=== PATIENT | male | born 1965 | race Caucasian/White ===

== ENCOUNTER 2019-10-23 11:16 | Inpatient (IN) | payer OTHER ==
[2019-10-23] MEDS ORDERED: METOCLOPRAMIDE HCL INJECTION 10 MG/2 ML VIAL IVPUSH ONE (11:41)
[2019-10-23] MEDS ORDERED: morphine CARPU-JECT 4 MG/1 ML DISP.SYRIN IVPUSH ONE (11:41)
[2019-10-23] MEDS ORDERED: LACTATED RINGERS SOLUTION 1000 ML INFUS.BAG IV ONE ×2 (11:42→12:52)
[2019-10-23] MEDS ORDERED: METOCLOPRAMIDE HCL INJECTION 10 MG/2 ML VIAL ONE (12:17)
[2019-10-23] MEDS ORDERED: morphine SULFATE 4 MG/ML VIAL ONE (12:18)
[2019-10-23 12:32] LABS: BASO % 0.6 % (0-2.0); EOS % 0.1 % (0-4.5); HEMATOCRIT 33.9 % (35.4-49); HEMOGLOBIN 11.2 GM/dL (11.7-16.9); MCH 26.5 pg (25.7-33.7); MCHC 33.1 g/dl (32.0-35.9); MEAN CELL VOLUME 80.2 fl (80-96); MEAN PLT VOLUME 8.6 fl (7.5-11.1); MONO % 7.7 % (3.8-10.2); NEUT % 80.6 % (42.8-82.8); PLATELET COUNT 181 K/MM3 (134-434); RBC 4.23 M/mm3 (4.00-5.60); RDW 13.5 % (11.9-15.9); WHITE BLOOD COUNT 6.1 K/mm3 (4.0-10.0)
[2019-10-23 12:39] LABS: VENOUS PC02 41.4 mmHg (38-52); VENOUS PO2 < 49 mmHg (28-48)
[2019-10-23 12:45] LABS: INR 1.12 (0.83-1.09); PROTHROMBIN TIME (PATIENT) 13.2 SEC (9.7-13.0)
[2019-10-23 12:47] LABS: ACTIVATED PTT 38.1 SECONDS (25.2-36.5)
[2019-10-23] MEDS ORDERED: ACETAMINOPHEN 1000 MG/100 ML VIAL (NON FORMULARY) IVPB ONE (12:52)
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
[2019-10-23 12:58] LABS: ALBUMIN 3.4 g/dl (3.4-5.0); BILIRUBIN,TOTAL 0.4 mg/dL (0.2-1); BLOOD UREA NITROGEN 14.6 mg/dL (7-18); CREATININE 1.2 mg/dL (0.55-1.3); POTASSIUM 3.7 mmol/L (3.5-5.1); TOT PROT 7.7 g/dl (6.4-8.2)
[2019-10-23] MEDS ORDERED: ACETAMINOPHEN INJECTION 100 ML IVPB ONE (13:00)
[2019-10-23] MEDS ORDERED: PIPERACILLIN/TAZOB 4.5 GM 4.5 GM in DEXTROSE 5%-WATER 100 ML IVPB ONE (13:07)
[2019-10-23] MEDS ORDERED: VANCOMYCIN 1,250 MG in DEXTROSE 5%-WATER - 250 ML IVPB ONE (13:07)
--- NOTE | 2019-10-23 13:14 | EKG ---
Test Reason : Blood Pressure : / mmHG Vent. Rate : 088 BPM Atrial Rate : 088 BPM P-R Int : 120 ms QRS Dur : 082 ms QT Int : 374 ms P-R-T Axes : 065 053 034 degrees QTc Int : 452 ms POOR DATA QUALITY, INTERPRETATION MAY BE ADVERSELY AFFECTED SINUS RHYTHM WITH PREMATURE ATRIAL COMPLEXES WHEN COMPARED WITH ECG OF 24-NOV-2014 16:53, PREMATURE ATRIAL COMPLEXES ARE NOW PRESENT NONSPECIFIC T WAVE ABNORMALITY HAS REPLACED INVERTED T WAVES IN INFERIOR LEADS Confirmed by ANDREW UNDERWOOD MD ([id number]) on 10/23/2019 1:14:21 PM Referred By: Confirmed By:ANDREW UNDERWOOD MD
[2019-10-23] MEDS ORDERED: PIPERACILLIN/TAZOB 4.5 GM 4.5 GM/100 ML BAG IVPB ONE (14:46)
[2019-10-23] MEDS ORDERED: OSELTAMIVIR PHOSPHATE 75 MG CAPSULE PO ONE (15:12)
[2019-10-23] MEDS ORDERED: KETOROLAC TROMETHAMINE 15 MG/ML VIAL IVPUSH ONE (15:37)
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
[2019-10-23] MEDS ORDERED: OSELTAMIVIR PHOSPHATE 75 MG CAPSULE ONE (16:20)
[2019-10-23] MEDS ORDERED: KETOROLAC TROMETHAMINE 15 MG/ML VIAL ONE (16:20)
[2019-10-23 16:29] LABS: METHADONE, UR NEGATIVE ng/ml (CUTOFF=300); PHENCYCLIDINE,URINE NEGATIVE ng/ml (CUTOFF=25); URINE AMPHETAMINES NEGATIVE ng/ml (CUTOFF=500); URINE BARBITURATES NEGATIVE ng/ml (CUTOFF=200); URINE BENZODIAZEPINES NEGATIVE ng/ml (CUTOFF=200)
[2019-10-23 16:38] LABS: COCAINE, UR POSITIVE ng/ml (CUTOFF=300); OPIATES, URI POSITIVE ng/ml (CUTOFF=300)
[2019-10-23] MEDS ORDERED: AZITHROMYCIN IVPB 500 MG/250 ML BAG IVPB ONE (16:56)
[2019-10-23] MEDS: AZITHROMYCIN IVPB 500 MG/250 ML BAG IVPB SCH (17:04)
[2019-10-23 17:22] LABS: URINE COLOR YELLOW
[2019-10-23 17:23] LABS: URINE APPEARANCE CLEAR; URINE BILIRUBIN NEGATIVE (NEGATIVE); URINE GLUCOSE (UA) NEGATIVE (NEGATIVE); URINE KETONE NEGATIVE (NEGATIVE); URINE PROTEIN 1+ (NEGATIVE); URINE UROBILINOGEN 0.2 mg/dL (0.2-1.0)
[2019-10-23 17:24] LABS: URINE LEUK ESTERASE NEGATIVE (NEGATIVE); URINE NITRITE NEGATIVE (NEGATIVE)
--- NOTE | 2019-10-23 17:25 | PN ---
Teaching Attending Note Name of Resident: Cedric Ley ATTENDING PHYSICIAN STATEMENT I saw and evaluated the patient. I reviewed the resident's note and discussed the case with the resident. I agree with the resident's findings and plan as documented. SUBJECTIVE: Pt. is a 54 y.o. M w/ PMHx. of HIV(last CD4: 63, high viral load) and Poly- substance abuse presents for chest pain and abdominal pain of 1 week duration, associated with fever, chills, cough, blood-tinged sputum, 10-lb weight loss over the last month,with decreased PO intake, night sweats and nasal congestion over the last week.also c/o having watery diarrhea and difficulty urinating over the last few months. OBJECTIVE: Vital Signs Temperature 100.9 F H 10/23/19 11:23 Pulse Rate 92 H 10/23/19 11:32 Respiratory Rate 19 10/23/19 11:23 Blood Pressure 90/69 10/23/19 11:23 O2 Sat by Pulse Oximetry (%) 100 10/23/19 11:32 GENERAL: The patient is awake, alert, and fully oriented, looking very ill, HEAD: Normal with no signs of trauma. EYES: PERRL, extraocular movements intact, sclera anicteric, conjunctiva clear. ENT: Ears normal, oropharynx clear without exudates, moist mucous membranes. NECK: Trachea midline, full range of motion, supple. LUNGS: decreased BS BL, + wheezes, no crackles, no accessory muscle use. HEART: Regular rate and rhythm, S1, S2 without murmur, rub or gallop. ABDOMEN: Soft, nontender, nondistended, normoactive bowel sounds, no guarding, no rebound, no hepatosplenomegaly, no masses. EXTREMITIES: 2+ pulses, warm, well-perfused, no edema. NEUROLOGICAL: Cranial nerves II through XII grossly intact. Normal speech, gait not observed. PSYCH: Normal mood, normal affect. SKIN: Warm, dry, normal turgor, no rashes or lesions noted CBCD WBC 6.1 K/mm3 (4.0-10.0) 10/23/19 12:00 RBC 4.23 M/mm3 (4.00-5.60) 10/23/19 12:00 Hgb 11.2 GM/dL (11.7-16.9) L 10/23/19 12:00 Hct 33.9 % (35.4-49) L 10/23/19 12:00 MCV 80.2 fl (80-96) 10/23/19 12:00 MCHC 33.1 g/dl (32.0-35.9) 10/23/19 12:00 RDW 13.5 % (11.9-15.9) 10/23/19 12:00 Plt Count 181 K/MM3 (134-434) 10/23/19 12:00 MPV 8.6 fl (7.5-11.1) 10/23/19 12:00 CMP Sodium 133 mmol/L (136-145) L 10/23/19 12:00 Potassium 3.7 mmol/L (3.5-5.1) 10/23/19 12:00 Chloride 102 mmol/L (98-107) 10/23/19 12:00 Carbon Dioxide 25 mmol/L (21-32) 10/23/19 12:00 Anion Gap 6 MMOL/L (8-16) L 10/23/19 12:00 BUN 14.6 mg/dL (7-18) 10/23/19 12:00 Creatinine 1.2 mg/dL (0.55-1.3) 10/23/19 12:00 Random Glucose 91 mg/dL (74-106) 10/23/19 12:00 Calcium 8.0 mg/dL (8.5-10.1) L 10/23/19 12:00 Total Bilirubin 0.4 mg/dL (0.2-1) 10/23/19 12:00 AST 23 U/L (15-37) 10/23/19 12:00 ALT 27 U/L (13-61) 10/23/19 12:00 Alkaline Phosphatase 65 U/L (45-117) 10/23/19 12:00 Total Protein 7.7 g/dl (6.4-8.2) 10/23/19 12:00 Albumin 3.4 g/dl (3.4-5.0) 10/23/19 12:00 CARDIAC ENZYMES Creatine Kinase 212 U/L (26-308) 10/23/19 12:00 Troponin I < 0.02 ng/ml (0.00-0.05) 10/23/19 12:00 Current Medications Generic Name Dose Route Start Last Admin Trade Name Ren PRN Reason Stop Dose Admin Enoxaparin Sodium 40 mg 10/24/19 10:00 Lovenox - SQ DAILY [facility] Azithromycin 500 mg in 250 mls @ 250 mls/hr 10/23/19 16:00 10/23/19 17:04 Zithromax 500mg Ivpb (Pre-Docked) IVPB 250 mls/hr DAILY [facility] Administration Ceftriaxone Sodium 1 gm/ 50 mls @ 200 mls/hr 10/23/19 17:30 Dextrose IVPB DAILY [facility] Protocol Oseltamivir Phosphate 75 mg 10/24/19 10:00 Tamiflu - PO 10/29/19 09:59 DAILY [facility] Home Medications Medication Instructions Recorded Abacavir/Dolutegravir/Lamivudi 1 each PO DAILY #30 tablet 09/28/19 [Triumeq 600-50-300 mg Tablet] Albuterol Sulfate Inhaler - 2 inh PO Q4H #1 inh 09/28/19 [Ventolin HFA Inhaler -] Bacitracin - [Bacitracin Topical 1 applic TP BID #1 applic 09/28/19 Ointment -] Darunavir/Cobicistat [Prezcobix 1 each PO DAILY #30 tablet 09/28/19 800 mg-150 mg Tablet] Multivitamin,Therapeutic [Thera] 1 each PO DAILY #30 tablet 09/28/19 Nicotine [Nicotine Patch 21 mg/24 1 patch TD DAILY #1 box 09/28/19 hr] Sulfamethoxazole/Trimethoprim 1 tab PO DAILY #30 tablet 09/28/19 [Bactrim DS -] Triamcinolone 0.1% Cream 1 applic TP BID #1 tube 09/28/19 [Aristocort 0.1% Cream -] Laboratory Tests 10/23/19 10/23/19 12:00 16:03 Opiates Screen Positive A* Cocaine Screen Positive A* U Marijuana (THC) Screen Positive A* Influenza A (Rapid) Negative Influenza B (Rapid) Negative chest CTA- no infiltrate, no PE ct abd/pelvis- no acute pathology ASSESSMENT AND PLAN: Patient is a 54yo male with Pmhx of hIV/Aids, Polysubstance abuse, presented with generalized weakness,fever, cough, non-bloody diarrhea, abdominal pain, shortness of breath , midepigastric pain x 1 week # Generalized weakness with flu like symptoms r/o Influenza/acute bronchitis; legionella s/p IV zosyn and vancomycin in ED viral PCR, stanton cx, continue Tamiflu, ceftriaxone/zithromax , droplet isolation, # aCUTE uti: CEFTRIAXONE DAILY ; ua, urine cx # Acute hyponatremia with non-bloody diarrhea: CANNOT R/O LEGIONELLA , stanton cx, stool WBC, stool cx # nON BLOODY DIARRHEA: stool wbc, culture, cdiff , ova and parasites #atypical for MAC : Blood cultures for afb #HIV/Aids continue ART,send cryptococcal antigen PER id. #Polysubstance abuse: detox MD consult dvt PX: sCDS
--- NOTE | 2019-10-23 17:39 | PN ---
Progress Note (short form) - Note Progress Note: ID consult dictated d/w admitting team 54 yo man with history of substance, denies IVDU, HIV + aids by tcells- intermittent adherence with meds seen in clinic today with fever and cough, with chest pain and midepigastric pain for one week +cigarette use nonbloody diarrhea for one week dysuria lives with mother chest CTA- no infiltrate, no PE ct abd/pelvis- no acute pathology r/o influenza r/o bronchitis r/o UTI continue ART received vanco/zosyn in ED droplet isolation tamiflu resp virus pcr ceftriaxone for uti zithromax for bronchitis atypical for MAC but can send blood cultures for afb send cryptococcal antigen (no headache) stool wbc, culture, cdiff , ova and parasites
[2019-10-23 18:13] LABS: EPI CELLS 1.8 /HPF (0-5/HPF); HYALINE CASTS 0.35 /lpf (0-8); URINE BACTERIA NONE SEEN /hpf (NEGATIVE); URINE RBC 0.4 /hpf (0-4); URINE WBC 1.7 /hpf (0-5)
--- NOTE | 2019-10-23 19:02 | CONS ---
DATE OF CONSULTATION: DATE OF DICTATION: 10/23/2019 INFECTIOUS DISEASE CONSULTATION REQUESTING PHYSICIAN: Hospitalist Service. CONSULTING PHYSICIAN: Elaina Norton MD. HISTORY OF PRESENT ILLNESS: This is a 54-year-old man with HIV disease, comes for intermittent care at the [facility]. He has questionable adherence to medications. He is a substance user but denies any IV drug use. Currently reports he is back in care since September 28 when he came to clinic, and he has been taking his medicines. He lives at home with his mother. He presents to the ER complaining of 1 week of cough. He has been running fevers at home. He has been having chest pain. He has been having diarrhea, nonbloody. He has been having dysuria. He says he thought all his symptoms would go away. He did not take any antibiotics, but he came to clinic today for evaluation and was advised ER evaluation. He complains of continued lower chest discomfort and abdominal pain. In the ER, given his complaints of pain, he had a chest CTA and abdominal CAT scan of the abdomen and pelvis that revealed no PE, no infiltrates, and a normal abdomen and pelvis. He continues to have discomfort. He has no history of any travel, he lives with his mother. He did get an influenza vaccine on the when he came to clinic. He is allergic to VIREAD, which gives him a rash. PAST MEDICAL HISTORY: Notable for HIV disease, and he has not had any surgery. He is a current, every day smoker. He uses cocaine. In the past he has used cocaine and alcohol. MEDICATION: His medications include , Ventolin, Prezcobix, , nicotine, Bactrim, triamcinolone. REVIEW OF SYSTEMS: As per HPI. He denies visual changes. He denies headaches. PHYSICAL EXAMINATION: General: He is awake and alert, his T-max is 100.9, current temperature is 99.5, pulse of 88, blood pressure is 110/68. He is saturating 98% on room air. HEENT: Normocephalic. Eyes are anicteric. His face is joseph. Neck: Supple. He has no thrush. He has no meningeal signs. Lungs: Diminished breath sounds at the bases. Heart: Regular rate and rhythm. Abdomen: There is no distention. He has midepigastric and suprapubic pain. He has pain in the lower part of his sternum as well to touch. Extremities: Without edema. LABORATORY: White count is 6.1, hemoglobin 11.2, platelets are 181, INR is 1.1. His BUN and creatinine are 14 and 1.2. Liver function tests are normal. UA is pending. His last T-cells were 63 on September 28 with a viral load of 237. Influenza screen in the ER was negative. Imaging is as stated. IMPRESSION: In summary, this is a 54-year-old man with acquired immunodeficiency syndrome who denies drug use admitted with a fever cough syndrome, rule out influenza, rule out bronchitis. He is complaining of dysuria as well and has suprapubic pain, rule out urinary tract infection. Blood cultures have been sent. He received vancomycin and Zosyn in the emergency room. Would isolate him for flu, treat him with Tamiflu, obtain a respiratory virus polymerase chain reaction. Ceftriaxone for possible urinary tract infection. Zithromax for bronchitis. Can send blood cultures for acid-fast bacillus. Send a cryptococcal antigen. Stool studies including white cells, cultures, Clostridium difficile, ova and parasites. Regarding his acquired immunodeficiency syndrome, would continue his antiretroviral care. Case was discussed at length with the admitting team. ELAINA NORTON M.D. [id number]
[2019-10-23] MEDS ORDERED: CEFTRIAXONE 1 GM/50 ML BAG ONE (19:33)
[2019-10-23] MEDS: CEFTRIAXONE 1 GM in DEXTROSE 5%-WATER - 50 ML IVPB SCH (19:43)
[2019-10-23] MEDS: SODIUM CHLORIDE 1,000 ML IV SCH (19:43)
[2019-10-23] MEDS: NICOTINE 21 MG/24 HOURS TOPICAL PATCH TD SCH (20:37)
[2019-10-23] MEDS ORDERED: PIPERACILLIN/TAZOB 4.5 GM 4.5 GM in DEXTROSE 5%-WATER 100 ML IVPB SCH (21:00)
[2019-10-24] MEDS ORDERED: ACETAMINOPHEN 325 MG TABLET (FP) ONE (06:22)
[2019-10-24] MEDS: ACETAMINOPHEN 325 MG TABLET (FP) PO PRN ×2 (06:27→20:56)
[2019-10-24 08:16] LABS: BASO % 0.2 % (0-2.0); EOS % 0.5 % (0-4.5); HEMATOCRIT 29.2 % (35.4-49); HEMOGLOBIN 9.8 GM/dL (11.7-16.9); LYMPH % 9.5 % (8-40); MCH 26.6 pg (25.7-33.7); MCHC 33.6 g/dl (32.0-35.9); MEAN PLT VOLUME 8.7 fl (7.5-11.1); MONO % 7.1 % (3.8-10.2); NEUT % 82.7 % (42.8-82.8); PLATELET COUNT 149 K/MM3 (134-434); RBC 3.69 M/mm3 (4.00-5.60); RDW 13.8 % (11.9-15.9); WHITE BLOOD COUNT 5.8 K/mm3 (4.0-10.0)
[2019-10-24 08:48] LABS: ALBUMIN 2.7 g/dl (3.4-5.0); BILIRUBIN,TOTAL 0.3 mg/dL (0.2-1); BLOOD UREA NITROGEN 12.2 mg/dL (7-18); CALCIUM 7.6 mg/dL (8.5-10.1); CREATININE 0.9 mg/dL (0.55-1.3); MAGNESIUM 1.9 mg/dL (1.8-2.4); PHOSPHOROUS 2.8 mg/dL (2.5-4.9); POTASSIUM 3.8 mmol/L (3.5-5.1); TOT PROT 6.5 g/dl (6.4-8.2)
[2019-10-24] MEDS ORDERED: VANCOMYCIN 1 GM in D5W (PRE-DOCKED) 1,000 MG/250 ML IVPB SCH (10:00)
[2019-10-24] MEDS: CEFTRIAXONE 1 GM in DEXTROSE 5%-WATER - 50 ML IVPB SCH (10:15)
[2019-10-24] MEDS: OSELTAMIVIR PHOSPHATE 75 MG CAPSULE PO SCH (10:15)
[2019-10-24] MEDS: NICOTINE 21 MG/24 HOURS TOPICAL PATCH TD SCH (10:15)
[2019-10-24] MEDS: ABACAVIR/DOLUTEGRAVIR/LAMIVUDI (TRIUMEQ) TABLET -NF PO SCH (10:15)
[2019-10-24] MEDS: ENOXAPARIN NA (PORCINE) 40 MG/0.4 ML DISP.SYRIN SQ SCH (10:15)
[2019-10-24] MEDS: DARUNAVIR 800 MG/COBICISTAT 150MG TABLET PO SCH (10:15)
[2019-10-24] MEDS ORDERED: AZITHROMYCIN IVPB 500 MG/250 ML BAG IVPB ONE (10:21)
[2019-10-24] MEDS ORDERED: CEFTRIAXONE 1 GM/50 ML BAG ONE (10:21)
[2019-10-24] MEDS: AZITHROMYCIN IVPB 500 MG/250 ML BAG IVPB SCH (11:00)
[2019-10-24] MEDS: SODIUM CHLORIDE 1,000 ML IV SCH (19:10)
[2019-10-24] MEDS ORDERED: PIPERACILLIN/TAZOB 4.5 GM 4.5 GM in DEXTROSE 5%-WATER 100 ML IVPB SCH (21:00)
[2019-10-24 21:45] LABS: EPI CELLS 6.5 /HPF (0-5/HPF); HYALINE CASTS 7 /lpf (0-8); PH,URINE 6.5 (5.0-8.0); URINE APPEARANCE CLEAR; URINE BACTERIA 26.7 /hpf (NEGATIVE); URINE BILIRUBIN NEGATIVE (NEGATIVE); URINE COLOR YELLOW; URINE GLUCOSE (UA) NEGATIVE (NEGATIVE); URINE KETONE TRACE (NEGATIVE); URINE LEUK ESTERASE NEGATIVE (NEGATIVE); URINE NITRITE NEGATIVE (NEGATIVE); URINE PROTEIN 2+ (NEGATIVE); URINE RBC 3 /hpf (0-4); URINE WBC 4 /hpf (0-5)
--- NOTE | 2019-10-24 22:57 | PN ---
Progress Note (short form) - Note Progress Note: Patient is lying in bed , with no acute distress. Vital Signs Temperature 98.0 F 10/24/19 20:00 Pulse Rate 80 10/24/19 20:00 Respiratory Rate 20 10/24/19 20:00 Blood Pressure 110/79 10/24/19 20:00 O2 Sat by Pulse Oximetry (%) 99 10/24/19 20:00 GENERAL: The patient looks better , comfortable HEAD: Normal with no signs of trauma. EYES: EOMI, PErrla ENT: Ears normal, MMM NECK: Trachea midline, full range of motion, supple. LUNGS: decreased BS BL, + wheezes, no crackles, no accessory muscle use. HEART: Regular rate and rhythm, S1, S2 without murmur, rub or gallop. ABDOMEN: Soft, nontender, nondistended, normoactive bowel sounds, no guarding, no rebound, no hepatosplenomegaly, no masses. EXTREMITIES: 2+ pulses, warm, well-perfused, no edema. NEUROLOGICAL: Cranial nerves II through XII grossly intact. SKIN: Warm, dry, normal turgor. CBCD WBC 5.8 K/mm3 (4.0-10.0) 10/24/19 06:41 RBC 3.69 M/mm3 (4.00-5.60) L 10/24/19 06:41 Hgb 9.8 GM/dL (11.7-16.9) L 10/24/19 06:41 Hct 29.2 % (35.4-49) L 10/24/19 06:41 MCV 79.0 fl (80-96) L 10/24/19 06:41 MCHC 33.6 g/dl (32.0-35.9) 10/24/19 06:41 RDW 13.8 % (11.9-15.9) 10/24/19 06:41 Plt Count 149 K/MM3 (134-434) 10/24/19 06:41 MPV 8.7 fl (7.5-11.1) 10/24/19 06:41 CMP Sodium 135 mmol/L (136-145) L 10/24/19 06:41 Potassium 3.8 mmol/L (3.5-5.1) 10/24/19 06:41 Chloride 105 mmol/L (98-107) 10/24/19 06:41 Carbon Dioxide 23 mmol/L (21-32) 10/24/19 06:41 Anion Gap 8 MMOL/L (8-16) 10/24/19 06:41 BUN 12.2 mg/dL (7-18) 10/24/19 06:41 Creatinine 0.9 mg/dL (0.55-1.3) 10/24/19 06:41 Random Glucose 79 mg/dL (74-106) 10/24/19 06:41 Calcium 7.6 mg/dL (8.5-10.1) L 10/24/19 06:41 Total Bilirubin 0.3 mg/dL (0.2-1) 10/24/19 06:41 AST 24 U/L (15-37) 10/24/19 06:41 ALT 22 U/L (13-61) 10/24/19 06:41 Alkaline Phosphatase 55 U/L (45-117) 10/24/19 06:41 Total Protein 6.5 g/dl (6.4-8.2) 10/24/19 06:41 Albumin 2.7 g/dl (3.4-5.0) L 10/24/19 06:41 CARDIAC ENZYMES Creatine Kinase 212 U/L (26-308) 10/23/19 12:00 Troponin I < 0.02 ng/ml (0.00-0.05) 10/23/19 12:00 Current Medications Generic Name Dose Route Start Last Admin Trade Name Freq PRN Reason Stop Dose Admin Abacavir/Dolutegravir/Lamivudine 1 each 10/24/19 10:00 10/24/19 10:15 Triumeq (Non-Formulary) PO 1 each DAILY LEANNA Administration Acetaminophen 650 mg 10/24/19 04:33 10/24/19 20:56 Tylenol - PO 650 mg Q6H PRN Administration Fever Or Pain Enoxaparin Sodium 40 mg 10/24/19 10:00 10/24/19 10:15 Lovenox - SQ 40 mg DAILY LEANNA Administration Azithromycin 500 mg in 250 mls @ 250 mls/hr 10/23/19 16:00 10/24/19 11:00 Zithromax 500mg Ivpb (Pre-Docked) IVPB 250 mls/hr DAILY LEANNA Administration Ceftriaxone Sodium 1 gm/ 50 mls @ 100 mls/hr 10/23/19 18:00 10/24/19 10:15 Dextrose IVPB 100 mls/hr DAILY LEANNA Administration Protocol Sodium Chloride 1,000 mls @ 75 mls/hr 10/23/19 18:15 10/24/19 19:10 Normal Saline - IV 75 mls/hr ASDIR LEANNA Administration Nicotine 21 mg 10/23/19 17:45 10/24/19 10:15 Nicoderm Patch - TD 21 mg DAILY LEANNA Administration Oseltamivir Phosphate 75 mg 10/24/19 10:00 10/24/19 10:15 Tamiflu - PO 10/29/19 09:59 75 mg DAILY LEANNA Administration Home Medications Medication Instructions Recorded Abacavir/Dolutegravir/Lamivudi 1 each PO DAILY #30 tablet 09/28/19 [Triumeq 600-50-300 mg Tablet] Albuterol Sulfate Inhaler - 2 inh PO Q4H #1 inh 09/28/19 [Ventolin HFA Inhaler -] Bacitracin - [Bacitracin Topical 1 applic TP BID #1 applic 09/28/19 Ointment -] Darunavir/Cobicistat [Prezcobix 1 each PO DAILY #30 tablet 09/28/19 800 mg-150 mg Tablet] Multivitamin,Therapeutic [Thera] 1 each PO DAILY #30 tablet 09/28/19 Nicotine [Nicotine Patch 21 mg/24 1 patch TD DAILY #1 box 09/28/19 hr] Sulfamethoxazole/Trimethoprim 1 tab PO DAILY #30 tablet 09/28/19 [Bactrim DS -] Triamcinolone 0.1% Cream 1 applic TP BID #1 tube 09/28/19 [Aristocort 0.1% Cream -] Laboratory Tests 10/23/19 10/23/19 12:00 16:03 Opiates Screen Positive A* Cocaine Screen Positive A* U Marijuana (THC) Screen Positive A* Influenza A (Rapid) Negative Influenza B (Rapid) Negative chest CTA- no infiltrate, no PE ct abd/pelvis- no acute pathology ASSESSMENT AND PLAN: Patient is a 54yo male with Pmhx of hIV/Aids, Polysubstance abuse, presented with generalized weakness,fever, cough, non-bloody diarrhea, abdominal pain, shortness of breath , midepigastric pain x 1 week # Generalized weakness with flu like symptoms , Influenza is negative but has symptoms of Influenza will continue treatment. #acute bronchitis; on zith/ceptriaxone continue s/p zosyn and vancomycin in ED viral PCR, stanton cx,still pending , continue Tamiflu, continue droplet isolation, # aCUTE uti: CEFTRIAXONE DAILY ; ua, urine cx # Acute hyponatremia with non-bloody diarrhea:improved ,negative for LEGIONELLA. # nON BLOODY DIARRHEA: stool wbc, culture, cdiff , ova and parasites follow #atypical for MAC : Blood cultures for afb #HIV/Aids continue ART,send cryptococcal antigen PER id. #Polysubstance abuse: detox MD consult dvt PX: sCDS Visit type - Emergency Visit Emergency Visit: Yes ED Registration Date: 10/23/19 Care time: The patient presented to the Emergency Department on the above date and was hospitalized for further evaluation of their emergent condition. - New Patient This patient is new to me today: No - Critical Care Critical Care patient: No - Discharge Referral Referred to [facility] No
[2019-10-25] MEDS ORDERED: CEFTRIAXONE 1 GM/50 ML BAG ONE (09:26)
[2019-10-25] MEDS: NICOTINE 21 MG/24 HOURS TOPICAL PATCH TD SCH (09:38)
[2019-10-25] MEDS: ENOXAPARIN NA (PORCINE) 40 MG/0.4 ML DISP.SYRIN SQ SCH (09:38)
[2019-10-25] MEDS: DARUNAVIR 800 MG/COBICISTAT 150MG TABLET PO SCH (09:38)
[2019-10-25] MEDS: ABACAVIR/DOLUTEGRAVIR/LAMIVUDI (TRIUMEQ) TABLET -NF PO SCH (09:38)
[2019-10-25] MEDS: CEFTRIAXONE 1 GM in DEXTROSE 5%-WATER - 50 ML IVPB SCH (09:38)
[2019-10-25] MEDS: OSELTAMIVIR PHOSPHATE 75 MG CAPSULE PO SCH (09:38)
[2019-10-25] MEDS ORDERED: AZITHROMYCIN IVPB 500 MG/250 ML BAG IVPB ONE (10:02)
[2019-10-25 10:09] LABS: BASO % 0.4 % (0-2.0); EOS % 3.7 % (0-4.5); HEMATOCRIT 32.9 % (35.4-49); HEMOGLOBIN 10.7 GM/dL (11.7-16.9); LYMPH % 19.8 % (8-40); MCH 26.1 pg (25.7-33.7); MCHC 32.5 g/dl (32.0-35.9); MEAN CELL VOLUME 80.5 fl (80-96); MEAN PLT VOLUME 8.5 fl (7.5-11.1); MONO % 9.6 % (3.8-10.2); NEUT % 66.5 % (42.8-82.8); PLATELET COUNT 169 K/MM3 (134-434); RBC 4.08 M/mm3 (4.00-5.60); WHITE BLOOD COUNT 3.1 K/mm3 (4.0-10.0)
--- NOTE | 2019-10-25 10:33 | PN ---
Physical Exam: SUBJECTIVE: Patient seen and examined. Pt states that both the breathing and the abdominal pain is improved, now 5/10. Pt. asking about going upstairs finally. OBJECTIVE: Vital Signs Period Temp Pulse Resp BP Sys/Del Rosario Pulse Ox Last 24 Hr 97.8 F-98.1 F 74-85 18-20 101-110/60-79 96-99 GENERAL: The patient is awake, alert, and fully oriented, improved appearance from admission HEAD: Normal with no signs of trauma. EYES: PERRL, extraocular movements intact, sclera anicteric, conjunctiva clear. ENT: Ears normal, oropharynx clear without exudates, moist mucous membranes. NECK: Trachea midline, full range of motion, supple. LUNGS: decreased BS BL, faint wheezes, no crackles, no accessory muscle use. HEART: Regular rate and rhythm, S1, S2 without murmur ABDOMEN: Soft, nontender, nondistended, normoactive bowel sounds, no guarding, no rebound EXTREMITIES: 2+ dorsal pedal pulses, warm, well-perfused, no edema. NEUROLOGICAL: Cranial nerves II through XII grossly intact. Normal speech, gait not observed. PSYCH: Normal mood, normal affect. SKIN: Warm, dry, normal turgor Laboratory Results - last 24 hr 10/24/19 10/25/19 21:25 09:50 WBC 3.1 L RBC 4.08 Hgb 10.7 L Hct 32.9 L MCV 80.5 MCH 26.1 MCHC 32.5 RDW 14.0 Plt Count 169 MPV 8.5 Absolute Neuts (auto) 2.0 Neutrophils % 66.5 Lymphocytes % 19.8 D Monocytes % 9.6 Eosinophils % 3.7 D Basophils % 0.4 Nucleated RBC % 0 Urine Color Yellow Urine Appearance Clear Urine pH 6.5 Ur Specific [place] 1.033 Urine Protein 2+ H Urine Glucose (UA) Negative Urine Ketones Trace H Urine Blood Negative Urine Nitrite Negative Urine Bilirubin Negative Urine Urobilinogen 1.0 Ur Leukocyte Esterase Negative Urine WBC (Auto) 4 Urine RBC (Auto) 3 Urine Casts (Auto) 7 U Epithel Cells (Auto) 6.5 Urine Bacteria (Auto) 26.7 Active Medications Home Medications Medication Instructions Recorded Abacavir/Dolutegravir/Lamivudi 1 each PO DAILY #30 tablet 09/28/19 [Triumeq 600-50-300 mg Tablet] Albuterol Sulfate Inhaler - 2 inh PO Q4H #1 inh 09/28/19 [Ventolin HFA Inhaler -] Bacitracin - [Bacitracin Topical 1 applic TP BID #1 applic 09/28/19 Ointment -] Darunavir/Cobicistat [Prezcobix 1 each PO DAILY #30 tablet 09/28/19 800 mg-150 mg Tablet] Multivitamin,Therapeutic [Thera] 1 each PO DAILY #30 tablet 09/28/19 Nicotine [Nicotine Patch 21 mg/24 1 patch TD DAILY #1 box 09/28/19 hr] Sulfamethoxazole/Trimethoprim 1 tab PO DAILY #30 tablet 09/28/19 [Bactrim DS -] Triamcinolone 0.1% Cream 1 applic TP BID #1 tube 09/28/19 [Aristocort 0.1% Cream -] Current Medications Abacavir/Dolutegravir/Lamivudine (Triumeq (Non-Formulary)) 1 each PO DAILY [facility] Last Admin: 10/25/19 09:38 Dose: 1 each Acetaminophen (Tylenol -) 650 mg PO Q6H PRN PRN Reason: Fever Or Pain Last Admin: 10/24/19 20:56 Dose: 650 mg Enoxaparin Sodium (Lovenox -) 40 mg SQ DAILY [facility] Last Admin: 10/25/19 09:38 Dose: 40 mg Azithromycin (Zithromax 500mg Ivpb (Pre-Docked)) 500 mg in 250 mls @ 250 mls/ hr IVPB DAILY [facility] Last Admin: 10/24/19 11:00 Dose: 250 mls/hr Ceftriaxone Sodium 1 gm/ (Dextrose) 50 mls @ 100 mls/hr IVPB DAILY [facility]; Protocol Last Admin: 10/25/19 09:38 Dose: 100 mls/hr Sodium Chloride (Normal Saline -) 1,000 mls @ 75 mls/hr IV ASDIR [facility] Last Admin: 10/24/19 19:10 Dose: 75 mls/hr Nicotine (Nicoderm Patch -) 21 mg TD DAILY [facility] Last Admin: 10/25/19 09:38 Dose: 21 mg Oseltamivir Phosphate (Tamiflu -) 75 mg PO DAILY [facility] Stop: 10/29/19 09:59 Last Admin: 10/25/19 09:38 Dose: 75 mg ASSESSMENT/PLAN: Pt. is a 54 y.o. M w/ PMHx. of HIV(last CD4: 63, high viral load) in September and Poly-substance abuse presents for chest pain and abdominal pain of 1 week duration. #FUO Flu Negative, will send RSV and Influenza for PCR, because of high suspicion for Flu CXR Negative CTA negative for PE, negative for acute pathology Lipase wnl Given Vanc and Zosyn in ED prior to UA and UCx. therefore will continue with empiric Ceftriaxone treatment f/u BCx Legionella/Pneumonia Ag Neg Isolation and Droplet Precautions c/w Azithromycin for atypical coverage, pending blood culture for AFB f/u cryptococcal Ag c/w Tamiflu for empiric Flu coverage ID Consult to Dr. Simon appreciated All cultures negative to date. #Diarrhea Stool Ova and Parasites, Stool Culture, Stool WBCs: Cultures negative to date CDif Ag. negative #HIV CD4: 63; High viral load c/w Triumeq and Darunavir/Cobicstat #Polysubstance Abuse Will provide Nicotine Patch Consider referral to [facility] on discharge for rehab UTox. Positive for Opiats (given in ED prior to Utox), Benzo, and THC #FEN NS @ 100 monitor electrlytes ansd replete as needed Regular Diet #DVT Ppx. Lovenox Visit type - Emergency Visit Emergency Visit: Yes ED Registration Date: 10/23/19 Care time: The patient presented to the Emergency Department on the above date and was hospitalized for further evaluation of their emergent condition. - New Patient This patient is new to me today: Yes Date on this admission: 10/26/19 - Critical Care Critical Care patient: No ATTENDING PHYSICIAN STATEMENT I saw and evaluated the patient. I reviewed the resident's note and discussed the case with the resident. I agree with the resident's findings and plan as documented. SUBJECTIVE: OBJECTIVE: ASSESSMENT AND PLAN:
[2019-10-25 10:34] LABS: BLOOD UREA NITROGEN 7.1 mg/dL (7-18); CREATININE 0.8 mg/dL (0.55-1.3); POTASSIUM 3.7 mmol/L (3.5-5.1)
[2019-10-25] MEDS: AZITHROMYCIN IVPB 500 MG/250 ML BAG IVPB SCH (10:42)
--- NOTE | 2019-10-25 11:00 | PN ---
Teaching Attending Note Name of Resident: Cedric Ley ATTENDING PHYSICIAN STATEMENT I saw and evaluated the patient. I reviewed the resident's note and discussed the case with the resident. I agree with the resident's findings and plan as documented. SUBJECTIVE: Patient is feeling better with no acute distress. No nausea or vomiting ,no shortness of breath. no fever or chills. Vital Signs Temperature 97.8 F 10/25/19 08:40 Pulse Rate 74 10/25/19 08:40 Respiratory Rate 20 10/25/19 08:40 Blood Pressure 101/60 10/25/19 08:40 O2 Sat by Pulse Oximetry (%) 96 10/25/19 09:56 GENERAL: The patient is awake, alert, and fully oriented, feels better with no acute distress. HEAD: Normal with no signs of trauma. EYES: PERRL, extraocular movements intact, sclera anicteric, conjunctiva clear. ENT: Ears normal, oropharynx clear without exudates, moist mucous membranes. NECK: Trachea midline, full range of motion, supple. LUNGS: decreased BS BL, + wheezes, no crackles, no accessory muscle use. HEART: Regular rate and rhythm, S1, S2 without murmur, rub or gallop. ABDOMEN: Soft, NT,ND, normoactive bowel sounds, no guarding, no rebound, no hepatosplenomegaly, no masses. EXTREMITIES: 2+ pulses, warm, well-perfused, no edema. NEUROLOGICAL: Cranial nerves II through XII grossly intact. Normal speech, gait not observed. PSYCH: Normal mood, normal affect. SKIN: Warm, dry, normal turgor, no rashes or lesions noted CBCD WBC 3.1 K/mm3 (4.0-10.0) L 10/25/19 09:50 RBC 4.08 M/mm3 (4.00-5.60) 10/25/19 09:50 Hgb 10.7 GM/dL (11.7-16.9) L 10/25/19 09:50 Hct 32.9 % (35.4-49) L 10/25/19 09:50 MCV 80.5 fl (80-96) 10/25/19 09:50 MCHC 32.5 g/dl (32.0-35.9) 10/25/19 09:50 RDW 14.0 % (11.9-15.9) 10/25/19 09:50 Plt Count 169 K/MM3 (134-434) 10/25/19 09:50 MPV 8.5 fl (7.5-11.1) 10/25/19 09:50 CMP Sodium 139 mmol/L (136-145) 10/25/19 09:50 Potassium 3.7 mmol/L (3.5-5.1) 10/25/19 09:50 Chloride 109 mmol/L (98-107) H 10/25/19 09:50 Carbon Dioxide 27 mmol/L (21-32) 10/25/19 09:50 Anion Gap 3 MMOL/L (8-16) L 10/25/19 09:50 BUN 7.1 mg/dL (7-18) 10/25/19 09:50 Creatinine 0.8 mg/dL (0.55-1.3) 10/25/19 09:50 Random Glucose 108 mg/dL (74-106) H 10/25/19 09:50 Calcium 8.0 mg/dL (8.5-10.1) L 10/25/19 09:50 Total Bilirubin 0.3 mg/dL (0.2-1) 10/24/19 06:41 AST 24 U/L (15-37) 10/24/19 06:41 ALT 22 U/L (13-61) 10/24/19 06:41 Alkaline Phosphatase 55 U/L (45-117) 10/24/19 06:41 Total Protein 6.5 g/dl (6.4-8.2) 10/24/19 06:41 Albumin 2.7 g/dl (3.4-5.0) L 10/24/19 06:41 CARDIAC ENZYMES Creatine Kinase 212 U/L (26-308) 10/23/19 12:00 Troponin I < 0.02 ng/ml (0.00-0.05) 10/23/19 12:00 Current Medications Generic Name Dose Route Start Last Admin Trade Name Freq PRN Reason Stop Dose Admin Abacavir/Dolutegravir/Lamivudine 1 each 10/24/19 10:00 10/25/19 09:38 Triumeq (Non-Formulary) PO 1 each DAILY LEANNA Administration Acetaminophen 650 mg 10/24/19 04:33 10/24/19 20:56 Tylenol - PO 650 mg Q6H PRN Administration Fever Or Pain Enoxaparin Sodium 40 mg 10/24/19 10:00 10/25/19 09:38 Lovenox - SQ 40 mg DAILY LEANNA Administration Azithromycin 500 mg in 250 mls @ 250 mls/hr 10/23/19 16:00 10/25/19 10:42 Zithromax 500mg Ivpb (Pre-Docked) IVPB 250 mls/hr DAILY LEANNA Administration Ceftriaxone Sodium 1 gm/ 50 mls @ 100 mls/hr 10/23/19 18:00 10/25/19 09:38 Dextrose IVPB 100 mls/hr DAILY LEANNA Administration Protocol Sodium Chloride 1,000 mls @ 75 mls/hr 10/23/19 18:15 10/24/19 19:10 Normal Saline - IV 75 mls/hr ASDIR LEANNA Administration Nicotine 21 mg 10/23/19 17:45 10/25/19 09:38 Nicoderm Patch - TD 21 mg DAILY LEANNA Administration Oseltamivir Phosphate 75 mg 10/24/19 10:00 10/25/19 09:38 Tamiflu - PO 10/29/19 09:59 75 mg DAILY LEANNA Administration Home Medications Medication Instructions Recorded Abacavir/Dolutegravir/Lamivudi 1 each PO DAILY #30 tablet 09/28/19 [Triumeq 600-50-300 mg Tablet] Albuterol Sulfate Inhaler - 2 inh PO Q4H #1 inh 09/28/19 [Ventolin HFA Inhaler -] Bacitracin - [Bacitracin Topical 1 applic TP BID #1 applic 09/28/19 Ointment -] Darunavir/Cobicistat [Prezcobix 1 each PO DAILY #30 tablet 09/28/19 800 mg-150 mg Tablet] Multivitamin,Therapeutic [Thera] 1 each PO DAILY #30 tablet 09/28/19 Nicotine [Nicotine Patch 21 mg/24 1 patch TD DAILY #1 box 09/28/19 hr] Sulfamethoxazole/Trimethoprim 1 tab PO DAILY #30 tablet 09/28/19 [Bactrim DS -] Triamcinolone 0.1% Cream 1 applic TP BID #1 tube 09/28/19 [Aristocort 0.1% Cream -] Laboratory Tests 10/23/19 10/23/19 12:00 16:03 Opiates Screen Positive A* Cocaine Screen Positive A* U Marijuana (THC) Screen Positive A* Influenza A (Rapid) Negative Influenza B (Rapid) Negative chest CTA- no infiltrate, no PE ct abd/pelvis- no acute pathology ASSESSMENT AND PLAN: Patient is a 54yo male with Pmhx of hIV/Aids, Polysubstance abuse, presented with generalized weakness,fever, cough, non-bloody diarrhea, abdominal pain, shortness of breath , midepigastric pain x 1 week # Generalized weakness with flu like symptoms r/o Influenza/acute bronchitis; legionella s/p IV zosyn and vancomycin in ED viral PCR, stanton cx, continue Tamiflu, ceftriaxone/zithromax , droplet isolation, # aCUTE UTI: on CEFTRIAXONE DAILY ; ua, urine cx # Acute hyponatremia with non-bloody diarrhea: CANNOT R/O LEGIONELLA , stanton cx, stool WBC, stool cx # nON BLOODY DIARRHEA: stool wbc, culture, cdiff , ova and parasites #atypical for MAC : Blood cultures for afb #HIV/Aids continue ART,send cryptococcal antigen PER id. #Polysubstance abuse: detox MD consult dvt PX: sCDS will continue to monitor will check with ID if patient is stable will dc the patient.
[2019-10-25] MEDS: SODIUM CHLORIDE 1,000 ML IV SCH ×2 (15:00→19:27)
[2019-10-25 18:24] VITALS: BMI 22.3
[2019-10-26 07:34] LABS: HEMATOCRIT 31.7 % (35.4-49); HEMOGLOBIN 10.6 GM/dL (11.7-16.9); MCH 26.7 pg (25.7-33.7); MCHC 33.3 g/dl (32.0-35.9); MEAN PLT VOLUME 8.9 fl (7.5-11.1); PLATELET COUNT 166 K/MM3 (134-434); RBC 3.96 M/mm3 (4.00-5.60); WHITE BLOOD COUNT 2.7 K/mm3 (4.0-10.0)
[2019-10-26 07:35] LABS: BLOOD UREA NITROGEN 5.3 mg/dL (7-18); CALCIUM 7.9 mg/dL (8.5-10.1); CREATININE 0.9 mg/dL (0.55-1.3); MAGNESIUM 2.1 mg/dL (1.8-2.4); PHOSPHOROUS 3.4 mg/dL (2.5-4.9); POTASSIUM 3.9 mmol/L (3.5-5.1)
[2019-10-26] MEDS ORDERED: DEXTROSE 5%-WATER - 50 ML IVPB ONE (09:58)
[2019-10-26] MEDS ORDERED: cefTRIAXone SODIUM 1 GM VIAL ONE (09:58)
[2019-10-26] MEDS: ENOXAPARIN NA (PORCINE) 40 MG/0.4 ML DISP.SYRIN SQ SCH (10:10)
[2019-10-26] MEDS: NICOTINE 21 MG/24 HOURS TOPICAL PATCH TD SCH (10:11)
[2019-10-26] MEDS: OSELTAMIVIR PHOSPHATE 75 MG CAPSULE PO SCH (10:11)
[2019-10-26] MEDS: ABACAVIR/DOLUTEGRAVIR/LAMIVUDI (TRIUMEQ) TABLET -NF PO SCH (10:13)
[2019-10-26] MEDS: DARUNAVIR 800 MG/COBICISTAT 150MG TABLET PO SCH (10:13)
[2019-10-26] MEDS: AZITHROMYCIN IVPB 500 MG/250 ML BAG IVPB SCH (10:31)
[2019-10-26] MEDS: CEFTRIAXONE 1 GM in DEXTROSE 5%-WATER - 50 ML IVPB SCH (10:31)
[2019-10-26] MEDS ORDERED: MINERAL OIL/PET HY-PHL TOPICAL OINTMENT 454 GM JAR TP SCH (10:45)
[2019-10-26 11:03] VITALS: BP 118/68; PULSE 74; TEMP 98
--- NOTE | 2019-10-26 11:41 | PN ---
Progress Note (short form) - Note Progress Note: doing well no fevers since admission minimal cough less midepigastric pain Vital Signs Period Temp Pulse Resp BP Sys/Del Rosario Pulse Ox Last 24 Hr 97.4 F-98 F 66-80 18-20 98-124/64-75 99-100 cor-rrr lulngs clear abd soft, mild midepigastric pain on palpation ext no edema CBC, BMP 10/26/19 06:05 10/26/19 06:05 Microbiology 10/24/19 21:25 Stool Salmonella/Shigella Culture - Preliminary NO ENTERIC PATHOGENS, 24 HOURS, ON PRIMARY PLATES 10/24/19 21:25 Stool Yersinia Culture - Preliminary NO ENTERIC PATHOGENS, 24 HOURS, ON PRIMARY PLATES 10/24/19 21:25 Stool Vibrio Culture - Final NO GROWTH OF VIBRIO SPECIES OBTAINED 10/24/19 21:25 Stool Escherichia coli 0157 Culture - Final NO GROWTH OF E COLI 0157 OBTAINED 10/24/19 21:25 Stool Gram Stain - Final 10/23/19 12:00 Blood - Peripheral Venous Blood Culture - Preliminary NO GROWTH OBTAINED AFTER 48 HOURS, INCUBATION TO CONTINUE FOR 3 DAYS. 10/23/19 12:00 Blood - Peripheral Venous Blood Culture - Preliminary NO GROWTH OBTAINED AFTER 48 HOURS, INCUBATION TO CONTINUE FOR 3 DAYS. 10/23/19 16:03 Urine - Urine Clean Catch Urine Culture - Final NO GROWTH OBTAINED 10/24/19 21:25 Stool Clostridioides difficile Antigen - Final 10/24/19 21:25 Stool Clostridioides difficile Toxin Assay - Final 10/23/19 16:03 Urine For Antigen Detection Legionella Antigen - Final 10/23/19 16:03 Urine For Antigen Detection Streptococcus pneumoniae Antigen (M - Final a/p r/o influenza r/o bronchitis r/o UTI hiv/aids continue ART complete 5 days tamiflu can switch to po ceftin to finish 7 days d/w hospitalist Problem List - Problems (1) Cough Code(s): R05 - COUGH (2) Bronchitis Code(s): J40 - BRONCHITIS, NOT SPECIFIED ACUTE OR CHRONIC (3) AIDS Code(s): B20 - HUMAN IMMUNODEFICIENCY VIRUS [HIV] DISEASE
--- NOTE | 2019-10-26 12:24 | DS ---
Physical Exam: SUBJECTIVE: Patient seen and examined. Pt. states that he feels much better. He rates his abdominal pain as 4-5/10. He states that his breathing is much better and he is very happy to be in a room upstairs. Pt. is requesting his cream for a rash on his face. OBJECTIVE: Vital Signs Period Temp Pulse Resp BP Sys/[place] Pulse Ox Last 24 Hr 97.4 F-98 F 66-80 18-20 98-124/64-75 99-100 PHYSICAL EXAM GENERAL: The patient is awake, alert, and fully oriented, improved appearance from admission HEAD: Normal with no signs of trauma. EYES: PERRL, extraocular movements intact, sclera anicteric, conjunctiva clear. ENT: Ears normal, oropharynx clear without exudates, moist mucous membranes. NECK: Trachea midline, full range of motion, supple. LUNGS: decreased BS BL, no wheezes, no crackles, no accessory muscle use. HEART: Regular rate and rhythm, S1, S2 without murmur ABDOMEN: Soft, nontender, nondistended, normoactive bowel sounds, no guarding, no rebound EXTREMITIES: 2+ dorsal pedal pulses, warm, well-perfused, no edema. NEUROLOGICAL: Cranial nerves II through XII grossly intact. Normal speech, gait not observed. PSYCH: Normal mood, normal affect. SKIN: Warm, dry, normal turgor LABS Laboratory Results - last 24 hr 10/26/19 10/26/19 06:05 06:05 WBC 2.7 L RBC 3.96 L Hgb 10.6 L Hct 31.7 L MCV 80.0 MCH 26.7 MCHC 33.3 RDW 14.0 Plt Count 166 MPV 8.9 Sodium 142 Potassium 3.9 Chloride 111 H Carbon Dioxide 27 Anion Gap 4 L BUN 5.3 L Creatinine 0.9 Est GFR (CKD-EPI)AfAm 111.83 Est GFR (CKD-EPI)NonAf 96.49 Random Glucose 86 Calcium 7.9 L Phosphorus 3.4 Magnesium 2.1 HOSPITAL COURSE: Date of Admission:10/23/19 Date of Discharge: 10/26/19 Pt. is a 54 y.o. M w/ PMHx. of HIV(last CD4: 63, high viral load) in September and Poly-substance abuse presents for chest pain and abdominal pain of 1 week duration with associated diarrhea and productive cough. Pt. was started on IV antibiotics and cultures(Blood, AFB, stool, cryptococcal, RSV, ova and parasites and urine) were taken which were all negative to date. Pt. was treated with Tamiflu despite negative test results because of high suspicion that Pt. had viral illness. CXR was clear however because of Pt. poor immune function thought process was that we should cover for CAP in addition because Pt. may not be able to mount the inflammatory response. Consultation to ID (Dr. Simon) appreciated. Pt. discharged on PO medications and instructions for follow-up as detailed below. Hospital course discussed and agreed upon with patient and medical staff. Minutes to complete discharge: 35 Discharge Summary Problems reviewed: Yes Reason For Visit: HIV ABDOMINAL PAIN CHEST PAIN Current Active Problems Abdominal pain (Acute) Bronchitis (Acute) Chest pain (Acute) Febrile illness, acute (Acute) Immunocompromised patient (Acute) Condition: Improved - Instructions Diet, Activity, Other Instructions: You came in for shortness of breath, abdominal pain and general malaise for 1 week. We treated you with IV antibiotics and with Tamiflu. We also noticed a rash which we treated with a topical cream. Please follow up with your PCP if the rash returns. We have started you on some new medications Please take Ceftin 500mg TWICE a day for 3 more days starting TONIGHT Please take Tamiflu 75 mg ONCE a day for 3 more days starting tomorrow. Please take Protonix 40mg ONCE a day. Please take 4-6 hours SEPARATELY from taking Ceftin and Tamiflu Please take Your Nicotine Patch ONCE a day Please take your other medications as they were prescribed. Please follow up with your Infectious Disease Doctor (Dr. Simon) within 1 week at the [facility] Please follow up with your Primary Care Practitioner VERONA Raygoza within 1 week at the [facility]. Please discuss having a referral at that time for endoscopy both upper and lower. Pleas return to the ED if you are having worsening shortness of breath, fever, chills, worsening abdominal pain or any other concerning symptoms. Referrals: Michelle Raygoza NP [Nurse Practitioner] - 1 Week Ameena Simon MD [Staff Physician] - 1 Week ( ) Disposition: HOME - Home Medications Comprehensive Discharge Medication List: Ambulatory Orders Abacavir/Dolutegravir/Lamivudi [Triumeq 600-50-300 mg Tablet] 1 each PO DAILY # 30 tablet 09/28/19 Albuterol Sulfate Inhaler - [Ventolin HFA Inhaler -] 2 inh PO Q4H #1 inh Bacitracin - [Bacitracin Topical Ointment -] 1 applic TP BID #1 applic 09/28/19 Darunavir/Cobicistat [Prezcobix 800 mg-150 mg Tablet] 1 each PO DAILY #30 tablet 09/28/19 Multivitamin,Therapeutic [Thera] 1 each PO DAILY #30 tablet 09/28/19 Sulfamethoxazole/Trimethoprim [Bactrim DS -] 1 tab PO DAILY #30 tablet 09/28/19 Triamcinolone 0.1% Cream [Aristocort 0.1% Cream -] 1 applic TP BID #1 tube 09/28 Cefuroxime Axetil [Ceftin -] 500 mg PO Q12H #7 tablet 10/26/19 Nicotine [Nicotine Patch 21 mg/24 hr] 1 patch TD DAILY #1 box 10/26/19 Oseltamivir Phosphate [Tamiflu -] 75 mg PO DAILY #3 capsule 10/26/19 Pantoprazole Sodium [Protonix] 40 mg PO DAILY #30 tablet. 10/26/19 This patient is new to me today: No Emergency Visit: Yes ED Registration Date: 10/23/19 Care time: The patient presented to the Emergency Department on the above date and was hospitalized for further evaluation of their emergent condition. Critical Care patient: No - Discharge Referral Referred to [facility] Med P.C.: No ATTENDING PHYSICIAN STATEMENT I saw and evaluated the patient. I reviewed the resident's note and discussed the case with the resident. I agree with the resident's findings and plan as documented. SUBJECTIVE: OBJECTIVE: ASSESSMENT AND PLAN:
--- NOTE | 2019-10-26 16:56 | PN ---
Teaching Attending Note Name of Resident: Cedric Ley ATTENDING PHYSICIAN STATEMENT I saw and evaluated the patient. I reviewed the resident's note and discussed the case with the resident. I agree with the resident's findings and plan as documented. SUBJECTIVE: Patient is feeling better , wants to go home. Vital Signs Temperature 98 F 10/26/19 10:00 Pulse Rate 74 10/26/19 10:00 Respiratory Rate 20 10/26/19 10:00 Blood Pressure 118/68 10/26/19 10:00 O2 Sat by Pulse Oximetry (%) 100 10/26/19 09:00 GENERAL: The patient is awake, alert, and fully oriented, feels better with no acute distress. HEAD: Normal with no signs of trauma. EYES: PERRL, extraocular movements intact, sclera anicteric, conjunctiva clear. ENT: Ears normal, oropharynx clear without exudates, moist mucous membranes. NECK: Trachea midline, full range of motion, supple. LUNGS: decreased BS BL, + wheezes, no crackles, no accessory muscle use. HEART: Regular rate and rhythm, S1, S2 without murmur, rub or gallop. ABDOMEN: Soft, NT,ND, normoactive bowel sounds, no guarding, no rebound, no hepatosplenomegaly, no masses. EXTREMITIES: 2+ pulses, warm, well-perfused, no edema. NEUROLOGICAL: Cranial nerves II through XII grossly intact. Normal speech, gait not observed. PSYCH: Normal mood, normal affect. SKIN: Warm, dry, normal turgor, no rashes or lesions noted CBCD WBC 2.7 K/mm3 (4.0-10.0) L 10/26/19 06:05 RBC 3.96 M/mm3 (4.00-5.60) L 10/26/19 06:05 Hgb 10.6 GM/dL (11.7-16.9) L 10/26/19 06:05 Hct 31.7 % (35.4-49) L 10/26/19 06:05 MCV 80.0 fl (80-96) 10/26/19 06:05 MCHC 33.3 g/dl (32.0-35.9) 10/26/19 06:05 RDW 14.0 % (11.9-15.9) 10/26/19 06:05 Plt Count 166 K/MM3 (134-434) 10/26/19 06:05 MPV 8.9 fl (7.5-11.1) 10/26/19 06:05 CMP Sodium 142 mmol/L (136-145) 10/26/19 06:05 Potassium 3.9 mmol/L (3.5-5.1) 10/26/19 06:05 Chloride 111 mmol/L (98-107) H 10/26/19 06:05 Carbon Dioxide 27 mmol/L (21-32) 10/26/19 06:05 Anion Gap 4 MMOL/L (8-16) L 10/26/19 06:05 BUN 5.3 mg/dL (7-18) L 10/26/19 06:05 Creatinine 0.9 mg/dL (0.55-1.3) 10/26/19 06:05 Random Glucose 86 mg/dL (74-106) 10/26/19 06:05 Calcium 7.9 mg/dL (8.5-10.1) L 10/26/19 06:05 Total Bilirubin 0.3 mg/dL (0.2-1) 10/24/19 06:41 AST 24 U/L (15-37) 10/24/19 06:41 ALT 22 U/L (13-61) 10/24/19 06:41 Alkaline Phosphatase 55 U/L (45-117) 10/24/19 06:41 Total Protein 6.5 g/dl (6.4-8.2) 10/24/19 06:41 Albumin 2.7 g/dl (3.4-5.0) L 10/24/19 06:41 CARDIAC ENZYMES Creatine Kinase 212 U/L (26-308) 10/23/19 12:00 Troponin I < 0.02 ng/ml (0.00-0.05) 10/23/19 12:00 Current Medications Generic Name Dose Route Start Last Admin Trade Name Freq PRN Reason Stop Dose Admin Abacavir/Dolutegravir/Lamivudine 1 each 10/24/19 10:00 10/25/19 09:38 Triumeq (Non-Formulary) PO 1 each DAILY LEANNA Administration Acetaminophen 650 mg 10/24/19 04:33 10/24/19 20:56 Tylenol - PO 650 mg Q6H PRN Administration Fever Or Pain Enoxaparin Sodium 40 mg 10/24/19 10:00 10/25/19 09:38 Lovenox - SQ 40 mg DAILY LEANNA Administration Azithromycin 500 mg in 250 mls @ 250 mls/hr 10/23/19 16:00 10/25/19 10:42 Zithromax 500mg Ivpb (Pre-Docked) IVPB 250 mls/hr DAILY LEANNA Administration Ceftriaxone Sodium 1 gm/ 50 mls @ 100 mls/hr 10/23/19 18:00 10/25/19 09:38 Dextrose IVPB 100 mls/hr DAILY LEANNA Administration Protocol Sodium Chloride 1,000 mls @ 75 mls/hr 10/23/19 18:15 10/24/19 19:10 Normal Saline - IV 75 mls/hr ASDIR LEANNA Administration Nicotine 21 mg 10/23/19 17:45 10/25/19 09:38 Nicoderm Patch - TD 21 mg DAILY LEANNA Administration Oseltamivir Phosphate 75 mg 10/24/19 10:00 10/25/19 09:38 Tamiflu - PO 10/29/19 09:59 75 mg DAILY LEANNA Administration Home Medications Medication Instructions Recorded Abacavir/Dolutegravir/Lamivudi 1 each PO DAILY #30 tablet 09/28/19 [Triumeq 600-50-300 mg Tablet] Albuterol Sulfate Inhaler - 2 inh PO Q4H #1 inh 09/28/19 [Ventolin HFA Inhaler -] Bacitracin - [Bacitracin Topical 1 applic TP BID #1 applic 09/28/19 Ointment -] Darunavir/Cobicistat [Prezcobix 1 each PO DAILY #30 tablet 09/28/19 800 mg-150 mg Tablet] Multivitamin,Therapeutic [Thera] 1 each PO DAILY #30 tablet 09/28/19 Nicotine [Nicotine Patch 21 mg/24 1 patch TD DAILY #1 box 09/28/19 hr] Sulfamethoxazole/Trimethoprim 1 tab PO DAILY #30 tablet 09/28/19 [Bactrim DS -] Triamcinolone 0.1% Cream 1 applic TP BID #1 tube 09/28/19 [Aristocort 0.1% Cream -] Laboratory Tests 10/23/19 10/23/19 12:00 16:03 Opiates Screen Positive A* Cocaine Screen Positive A* U Marijuana (THC) Screen Positive A* Influenza A (Rapid) Negative Influenza B (Rapid) Negative chest CTA- no infiltrate, no PE ct abd/pelvis- no acute pathology ASSESSMENT AND PLAN: Patient is a 54yo male with Pmhx of hIV/Aids, Polysubstance abuse, presented with generalized weakness,fever, cough, non-bloody diarrhea, abdominal pain, shortness of breath , midepigastric pain x 1 week # Generalized weakness with flu like symptoms will dc the patient on tamiflu to complete 5 day total, and ceftin 500mg po bid for bronchitis, #acute bronchitis: continue with Ceftin 500mg po bid x total of 5 days. negative legionella s/p IV zosyn and vancomycin in ED viral PCR, [place] cx, continue Tamiflu, will dc the patient on ceftin 500mg po x total of 5 days, s/p ceftriaxone/zithromax , droplet isolation, # aCUTE UTI: on CEFTRIAXONE DAILY ; ua, urine cx # Acute hyponatremia improved now, legionella is negative , follow cx at with the [facility], since so far is negative, , stool WBC, stool cx , so far negative # nON BLOODY DIARRHEA: stool wbc, culture, cdiff , ova and parasites #atypical for MAC : Blood cultures for afb #HIV/Aids continue ART,send cryptococcal antigen PER id. #Polysubstance abuse: detox MD consult dvt PX: sCDS as per ID , patient can go home on tamiflu, and ceftin , dc patient home.
== END 2019-10-26 14:28 | disposition home or self-care (01) | DRG 144 ==
LOC: JER 11:16 → JERBED 14:41 → J4S 10-25 17:00
PROVIDERS: ADMIT Internal Medicine; ATTEND Internal Medicine
DX: J20.9 Acute bronchitis, unspecified (principal); E87.1 Hypo-osmolality and hyponatremia; B20 Human immunodeficiency virus [HIV] disease; J18.9 Pneumonia, unspecified organism; N39.0 Urinary tract infection, site not specified; Z87.891 Personal history of nicotine dependence; R19.7 Diarrhea, unspecified; J11.1 Influenza due to unidentified influenza virus with other respiratory manifestations; F14.10 Cocaine abuse, uncomplicated; F10.10 Alcohol abuse, uncomplicated; R21 Rash and other nonspecific skin eruption
CPT/HCPCS: 36415; 71046-TC-FY; 71275-TC; 74177-TC; 80048; 80053; 80307; 81003; 82550; 82553; 82803; 83605; 83690; 83735; 84100; 84484; 85025; 85027; 85379; 85610; 85730; 87040; 87045; 87046; 87081; 87086; 87116; 87177; 87205; 87209; 87324; 87449; 87633; 87804; 87899; 93005; 93010; 99285-25; J0131; J7030; Q9967

== ENCOUNTER 2024-01-29 15:35 | Inpatient (IN) | payer OTHER ==
[2024-01-29 15:45] VITALS: BMI 41.5
[2024-01-29] MEDS ORDERED: ACETAMINOPHEN INJECTION 100 ML IVPB ONE (17:07)
[2024-01-29 17:12] LABS: BASO % 0.6 % (0-2.0); EOS % 2.4 % (0-4.5); HEMATOCRIT 37.7 % (35.4-49); HEMOGLOBIN 12.2 GM/dL (11.7-16.9); LYMPH % 23.9 % (8-40); MCH 26.6 pg (25.7-33.7); MCHC 32.4 g/dl (32.0-35.9); MEAN PLT VOLUME 8.6 fl (7.5-11.1); MONO % 6.4 % (3.8-10.2); NEUT % 66.7 % (42.8-82.8); PLATELET COUNT 331 10^3/uL (134-434); RDW 15.5 % (11.9-15.9); WHITE BLOOD COUNT 10.9 K/mm3 (4.0-10.0)
[2024-01-29] MEDS: ACETAMINOPHEN 1000 MG/100 ML BAG IVPB ONE (17:15)
[2024-01-29] MEDS: SODIUM CHLORIDE 0.9% 500 ML INFUS.BAG IV ONE (17:15)
[2024-01-29 17:26] LABS: POTASSIUM 3.8 mmol/L (3.5-5.1)
[2024-01-29 17:28] LABS: CALCIUM 8.2 mg/dL (8.5-10.1)
[2024-01-29 17:29] LABS: ALBUMIN 3.5 g/dl (3.4-5.0); BLOOD UREA NITROGEN 13.2 mg/dL (7-18)
[2024-01-29 17:32] LABS: CREATININE 1.2 mg/dL (0.55-1.3)
[2024-01-29 17:33] LABS: BILIRUBIN,TOTAL 0.3 mg/dL (0.2-1); TOT PROT 8.8 g/dl (6.4-8.2)
[2024-01-29] MEDS: PIPERACILLIN/TAZOB 3.375 GM 3.375 GM in DEXTROSE 5%-WATER - 50 ML IVPB ONE (19:11)
[2024-01-30] MEDS ORDERED: ALBUTEROL SO4 HFA INHALER IH PRN (00:07)
[2024-01-30] MEDS: MEROPENEM 1 GM in DEXTROSE 5%-WATER 100 ML IVPB SCH (03:49)
[2024-01-30 09:00] LABS: BASO % 0.4 % (0-2.0); EOS % 3.6 % (0-4.5); HEMATOCRIT 35.2 % (35.4-49); HEMOGLOBIN 11.1 GM/dL (11.7-16.9); LYMPH % 26.6 % (8-40); MCH 26.5 pg (25.7-33.7); MCHC 31.6 g/dl (32.0-35.9); MEAN CELL VOLUME 83.6 fl (80-96); MEAN PLT VOLUME 8.2 fl (7.5-11.1); MONO % 8.5 % (3.8-10.2); NEUT % 60.9 % (42.8-82.8); PLATELET COUNT 257 10^3/uL (134-434); RBC 4.21 M/mm3 (4.00-5.60); RDW 15.3 % (11.9-15.9); WHITE BLOOD COUNT 7.9 K/mm3 (4.0-10.0)
[2024-01-30 10:07] LABS: BLOOD UREA NITROGEN 12.1 mg/dL (7-18); CALCIUM 8.4 mg/dL (8.5-10.1)
[2024-01-30 10:09] LABS: CREATININE 1.1 mg/dL (0.55-1.3)
[2024-01-30 10:10] LABS: BILIRUBIN,TOTAL 0.5 mg/dL (0.2-1)
[2024-01-30 10:11] LABS: TOT PROT 7.8 g/dl (6.4-8.2)
[2024-01-30] MEDS: FINASTERIDE 5 MG TABLET (FP) PO SCH (10:22)
[2024-01-30] MEDS: MULTIVITAMINS (DAILY MVI) TABLET (FP) PO SCH (10:22)
[2024-01-30] MEDS: PANTOPRAZOLE 20 MG TABLET PO SCH (10:22)
[2024-01-30] MEDS: DARUNAVIR 800 MG/COBICISTAT 150MG TABLET PO SCH (11:20)
[2024-01-30] MEDS: ABACAVIR/DOLUTEGRAVIR/LAMIVUDI (TRIUMEQ) TABLET PO SCH (11:20)
[2024-01-30] MEDS: traZODone HCL 50 MG TABLET (FP) PO SCH (22:13)
[2024-01-31] MEDS: MEROPENEM 1 GM in DEXTROSE 5%-WATER 100 ML IVPB SCH (02:55)
[2024-01-31 08:14] LABS: BASO % 0.4 % (0-2.0); EOS % 3.6 % (0-4.5); HEMATOCRIT 34.3 % (35.4-49); HEMOGLOBIN 11.2 GM/dL (11.7-16.9); LYMPH % 29.9 % (8-40); MCH 27.1 pg (25.7-33.7); MCHC 32.5 g/dl (32.0-35.9); MEAN CELL VOLUME 83.4 fl (80-96); MEAN PLT VOLUME 8.4 fl (7.5-11.1); MONO % 7.7 % (3.8-10.2); NEUT % 58.4 % (42.8-82.8); PLATELET COUNT 245 10^3/uL (134-434); RBC 4.12 M/mm3 (4.00-5.60); RDW 15.1 % (11.9-15.9); WHITE BLOOD COUNT 7.3 K/mm3 (4.0-10.0)
[2024-01-31 08:29] LABS: ALBUMIN 2.9 g/dl (3.4-5.0); BLOOD UREA NITROGEN 13.9 mg/dL (7-18)
[2024-01-31 08:32] LABS: CREATININE 1.1 mg/dL (0.55-1.3)
[2024-01-31 08:33] LABS: BILIRUBIN,TOTAL 0.5 mg/dL (0.2-1)
[2024-01-31 08:34] LABS: TOT PROT 7.5 g/dl (6.4-8.2)
[2024-01-31] MEDS: ENOXAPARIN NA (PORCINE) 40 MG/0.4 ML DISP.SYRIN SQ SCH (11:24)
[2024-01-31] MEDS: MAG HYDROX/AL HYDROX/SIMETH 30 ML UNIT-DOSE CUP PO ONE (18:58)
[2024-02-01 08:37] LABS: BASO % 0.5 % (0-2.0); EOS % 3.7 % (0-4.5); HEMATOCRIT 34.7 % (35.4-49); HEMOGLOBIN 11.5 GM/dL (11.7-16.9); MCH 27.2 pg (25.7-33.7); MEAN CELL VOLUME 82.4 fl (80-96); NEUT % 60.8 % (42.8-82.8); PLATELET COUNT 255 10^3/uL (134-434); RBC 4.21 M/mm3 (4.00-5.60); RDW 14.8 % (11.9-15.9); WHITE BLOOD COUNT 7.9 K/mm3 (4.0-10.0)
[2024-02-01 08:48] LABS: POTASSIUM 4.2 mmol/L (3.5-5.1)
[2024-02-01 09:11] LABS: ALBUMIN 2.9 g/dl (3.4-5.0)
[2024-02-01 09:12] LABS: BLOOD UREA NITROGEN 13.9 mg/dL (7-18)
[2024-02-01 09:13] LABS: TOT PROT 7.6 g/dl (6.4-8.2)
[2024-02-01 09:14] LABS: CALCIUM 8.5 mg/dL (8.5-10.1)
[2024-02-01 09:21] LABS: BILIRUBIN,TOTAL 0.4 mg/dL (0.2-1)
[2024-02-02 06:54] VITALS: BP 122/72; PULSE 69; RESP 16; TEMP 98
== END 2024-02-02 11:05 | disposition left against medical advice (07) | DRG 463 ==
LOC: JER 15:35 → JERBED 18:10 → OBSVTOIN 20:48 → J7W 01-30 02:36
PROVIDERS: ADMIT Internal Medicine; ATTEND Nurse Practitioner Family
DX: N39.0 Urinary tract infection, site not specified (principal); B20 Human immunodeficiency virus [HIV] disease; R07.89 Other chest pain; F41.9 Anxiety disorder, unspecified
CPT/HCPCS: 36415; 71045-TC-FY; 74177-TC; 76775-TC; 80053; 83690; 84484; 85025; 87040; 87086; 93005; 93010; 99285-25; G0378; J0131; Q9967

== ENCOUNTER 2024-11-03 11:54 | Day surgery (SDC) | payer OTHER ==
[2024-11-03] MEDS: ERTAPENEM SODIUM 1 GM in SODIUM CHLORIDE 50 ML IVPB ONE (12:45)
[2024-11-03 15:21] VITALS: BP 115/81; PULSE 77; RESP 18; TEMP 98.2
== END 2024-11-03 13:32 | disposition home or self-care (01) ==
LOC: FINFUSION 11:54 → FM/S 11:55 → FINFUSION 13:32
PROVIDERS: ATTEND Internal Medicine Infectious Disease
DX: N39.0 Urinary tract infection, site not specified (principal)
CPT/HCPCS: 96365